=== PATIENT | female | born 1945 | race Two or more races ===

== ENCOUNTER 2019-02-05 21:38 | Emergency (ER) | payer OTHER ==
[~2019-02-05] VITALS: Ht 160 cm; Wt 61.2 kg
[2019-02-05 22:04] LABS: BASOPHILS # (AUTO) 0.1 /CMM (0.0-0.2); BASOPHILS % (AUTO) 1.4 % (0.0-2.0); EOSINOPHILS % (AUTO) 2.6 % (0.0-6.0); HEMATOCRIT 40 % (33-45); HEMOGLOBIN 13.1 g/dL (11.5-14.8); MEAN CORPUSCULAR HGB CONC 33 g/dl (31.0-36.0); MEAN CORPUSCULAR VOLUME 85 fL (82-100); MONOCYTES # (AUTO) 0.5 /CMM (0.1-1.30); MONOCYTES % (AUTO) 7.3 % (2.0-12.0); NEUTROPHILS # (AUTO) 4.2 /CMM (1.8-8.9); NEUTROPHILS % (AUTO) 59.7 % (43.0-81.0); PLATELET COUNT (AUTO) 223 /CMM (150-450)
--- NOTE | 2019-02-05 22:09 | NUR ---
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 +ETOH PER RA, BS 127. PT AAOX3, VSS. DENIES CP, SOB, N/V, [place] @ THIS TIME. PT SEEN & EVAL'D BY DR. FRANCOIS. 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
[2019-02-05 22:12] LABS: CALCIUM, SERUM 9.4 mg/dL (8.5-10.1); CARBON DIOXIDE 26 mmol/L (21-32); CHLORIDE 106 mmol/L (98-107); CREATININE 0.9 mg/dL (0.6-1.3); GLUCOSE 116 mg/dL (74-106); POTASSIUM 3.6 mmol/L (3.5-5.1); SODIUM SERUM 144 mmol/L (136-145); UREA NITROGEN, BLOOD 12 mg/dL (7-18)
[2019-02-05 22:18] LABS: ALANINE AMINOTRANSFERASE 21 U/L (12-78); ALBUMIN 3.5 g/dL (3.4-5.0); ALCOHOL, BLOOD 22 mg/dL (0-0); ALKALINE PHOSPHATASE 65 U/L (46-116); ASPARTATE AMINOTRANSFERASE 17 U/L (15-37); BILIRUBIN,DIRECT 0.1 mg/dL (0.0-0.2); BILIRUBIN,TOTAL 0.4 mg/dL (0.2-1.0); TOTAL PROTEIN, SERUM 7.2 g/dL (6.4-8.2)
[2019-02-05] MEDS ORDERED: ONDANSETRON 4 MG TAB.RAPDIS ONE (22:51)
[2019-02-05] MEDS ORDERED: ONDANSETRON 4 MG TAB.RAPDIS SL ONE (23:00)
--- NOTE | 2019-02-05 23:04 | NUR ---
URINE COLLECTED AND SENT TO LAB
[2019-02-05 23:22] LABS: APPEARANCE,URINE Clear (CLEAR); BILIRUBIN,URINE Negative (NEGATIVE); BLOOD, URINE Negative Ery/uL (NEGATIVE); COLOR,URINE Yellow (YELLOW); KETONES,URINE Trace (NEGATIVE); LEUKOCYTE ESTERASE ,URINE Trace (NEGATIVE); NITRITE, URINE Negative (NEGATIVE); PROTEIN,URINE Negative (NEGATIVE); UGLUCOSE Negative (NEGATIVE); UROBILINOGEN,URINE 0.2 EU/dL (0.2)
[2019-02-05 23:57] LABS: BACTERIA,URINE None seen /HPF (None Seen); RBC,URINE 0-2 /HPF (0-2); SQUAMOUS EPITHELIAL CELL,UR Few /HPF (None Seen)
--- NOTE | 2019-02-06 00:43 | NUR ---
ROB (DAUGHTER) CONTACT INFORMATION:
--- NOTE | 2019-02-06 02:29 | NUR ---
TRANSPORT ETA ([facility]) 0400.
--- NOTE | 2019-02-06 02:29 | NUR ---
TRANSFER INFO RECEIVED FROM [employer], PT WILL BE GOING TO [facility] ROOM # [id number] REPORT # ACCEPTING MD WALLACE
--- NOTE | 2019-02-06 03:48 | NUR ---
GAVE REPORT TO ROBYN BARNES FROM [facility]
[2019-02-06 03:55] VITALS: BP 119/67
== END 2019-02-06 03:58 | disposition short-term general hospital (02) ==
LOC: ER 21:40
DX: R55 Syncope and collapse (principal); R42 Dizziness and giddiness; R41.0 Disorientation, unspecified; I10 Essential (primary) hypertension; F10.10 Alcohol abuse, uncomplicated; Y90.1 Blood alcohol level of 20-39 mg/100 ml
CPT/HCPCS: 36415; 70450; 71045; 80048; 80076; 80305; 80307; 81001; 82962; 84484; 85025; 85730; 93005; 99285; Q0162; 81000-TC; G0480